=== PATIENT | female | born 1960 ===

== ENCOUNTER 2024-06-02 07:16 | Outpatient (CLI) | payer OTHER ==
[2024-06-02 07:55] LABS: HEMATOCRIT 31.9 % (36.0-45.00); HEMOGLOBIN 10.9 g/dL (12.0-15.00); MEAN CELL VOLUME 91.8 fL (80.00-100.00); MEAN CORPUSCULAR HEMOGLOBIN 31.2 pg (27.00-32.0); PLATELET COUNT 236 K/uL (150-450); RED BLOOD COUNT 3.48 M/uL (4.00-6.00); RED CELL DISTRIBUTION WIDTH 14.8 % (11.5-14.5)
[2024-06-02 08:06] LABS: URINE APPEARANCE Clear; URINE BACTERIA 279.7 uL (0.0-1933); URINE BILIRRUBIN Negative (NEGATIVE); URINE BLOOD Negative; URINE COLOR Yellow; URINE EPITHELIAL CELLS 32.7 uL (0.0-38.8); URINE GLUCOSE Negative (NEGATIVE); URINE KETONE Trace (NEGATIVE); URINE LEUKOCYTE Small; URINE NITRATE Negative; URINE PROTEIN Trace (NEGATIVE)
[2024-06-02 08:38] LABS: INR 0.96; PARTIAL THROMBOPLASTIN TIME 28.8 SECONDS (22.0-34.0); PROTHROMBIN TIME 10.5 SECONDS (9.0-11.5)
[2024-06-02 08:59] LABS: URINE CAST 1.06 uL (0.0-1.40)
[2024-06-02 09:00] LABS: URINE MUCUS SCANT
[2024-06-02 09:17] LABS: ALBUMIN 3.9 gm/dL (3.4-5.0); BILIRUBIN TOTAL 0.55 mg/dL (0.3-1.2); CREATININE SERUM 0.7 mg/dL (0.55-1.02); GFR 84.79; GLOBULINA 2.7 G/DL (2.4-3.5); POTASSIUM 4.08 mEq/L (3.5-5.1); TOTAL PROTEIN 6.6 gm/dL (6.4-8.2)
== END 2024-06-02 14:24 | disposition home or self-care (01) ==
LOC: LAB 07:16
PROVIDERS: ATTEND Orthopaedic Surgery
DX: D64.9 Anemia, unspecified (principal); E88.89 Other specified metabolic disorders; D68.8 Other specified coagulation defects; N39.0 Urinary tract infection, site not specified; Z22.322 Carrier or suspected carrier of Methicillin resistant Staphylococcus aureus; I10 Essential (primary) hypertension

== ENCOUNTER 2024-06-02 08:05 | Outpatient (CLI) | payer OTHER | END 2024-06-02 08:12 | disposition home or self-care (01) | LOC: RAD 08:05 | PROVIDERS: ATTEND Orthopaedic Surgery | DX: M25.511 Pain in right shoulder (principal); M25.512 Pain in left shoulder; Z76.89 Persons encountering health services in other specified circumstances ==

== ENCOUNTER 2025-02-09 09:01 | Outpatient (CLI) | payer OTHER ==
[2025-02-09 10:06] LABS: HEMATOCRIT 33.6 % (36.0-45.00); HEMOGLOBIN 11.3 g/dL (12.0-15.00); MEAN CELL VOLUME 88.8 fL (80.00-100.00); MEAN CORPUSCULAR HEMOGLOBIN 29.8 pg (27.00-32.0); MEAN CORPUSCULAR HGB CONC 33.5 g/dl (32.0-36.0); PLATELET COUNT 241 K/uL (150-450); RED BLOOD COUNT 3.79 M/uL (4.00-6.00); RED CELL DISTRIBUTION WIDTH 13.7 % (11.5-14.5)
[2025-02-09 10:31] LABS: INR 0.98; PARTIAL THROMBOPLASTIN TIME 29.1 SECONDS (22.0-34.0); PROTHROMBIN TIME 10.7 SECONDS (9.0-11.5)
[2025-02-09 10:33] LABS: URINE APPEARANCE Clear; URINE BILIRRUBIN Negative (NEGATIVE); URINE BLOOD Negative; URINE COLOR Yellow; URINE GLUCOSE Negative (NEGATIVE); URINE KETONE Trace (NEGATIVE); URINE LEUKOCYTE Small; URINE NITRATE Negative; URINE PROTEIN Trace (NEGATIVE); URINE UROBILINOGEN 0.2 E.U./dl
[2025-02-09 10:37] LABS: URINE BACTERIA 237.4 uL (0.0-1933); URINE EPITHELIAL CELLS 17.2 uL (0.0-38.8); URINE RBC 46.9 uL (0.0-20.8); URINE WBC 68.3 uL (0.0-23.2)
[2025-02-09 11:14] LABS: COL EPI 102 SECONDS (82-175)
[2025-02-09 11:30] LABS: ALBUMIN 3.9 gm/dL (3.4-5.0); BILIRUBIN TOTAL 0.55 mg/dL (0.3-1.2); CALCIUM 9.2 mg/dL (8.5-10.1); CREATININE SERUM 0.64 mg/dL (0.55-1.02); GFR 94.03; GLOBULINA 3.1 G/DL (2.4-3.5); POTASSIUM 4.45 mEq/L (3.5-5.1)
== END 2025-02-09 15:10 | disposition home or self-care (01) ==
LOC: RAD 09:01
PROVIDERS: ATTEND Orthopaedic Surgery
DX: D64.9 Anemia, unspecified (principal); E88.9 Metabolic disorder, unspecified; D68.8 Other specified coagulation defects; N39.0 Urinary tract infection, site not specified; Z22.322 Carrier or suspected carrier of Methicillin resistant Staphylococcus aureus; E11.9 Type 2 diabetes mellitus without complications; Z76.89 Persons encountering health services in other specified circumstances